=== PATIENT | male | born 1965 | race Caucasian/White ===

== ENCOUNTER → 2017-10-13 | Outpatient (CLI) | payer OTHER ==
[~2017-10-13] MED LIST: AMLO10 PO; CARB100CH PO; LEVSOD100 PO; LISI5 PO; SENN187 PO; SOLI5 PO; Vesicare10 MG PO
[2017-10-13 23:34] LABS: Stool Occult Bld Immuno 1 Negative (NEGATIVE)
== END | disposition home or self-care (01) ==
LOC: LAB SHORT 09:00 → LAB SRC 09:00
PROVIDERS: Internal Medicine
DX: Z12.11 Encounter for screening for malignant neoplasm of colon (principal)
CPT/HCPCS: G0328

== ENCOUNTER 2020-04-06 11:14 | Emergency (ER) | payer OTHER ==
[~2020-04-06] VITALS: Ht 165.1 cm; Wt 99.3 kg
[2020-04-06] MEDS ORDERED: LOSA25 PO (11:33)
[2020-04-06] MEDS ORDERED: DOCU100 PO (11:33)
== END 2020-04-06 18:58 | disposition home or self-care (01) ==
LOC: ER 11:14
DX: K59.00 Constipation, unspecified (principal); I10 Essential (primary) hypertension; G40.909 Epilepsy, unspecified, not intractable, without status epilepticus; Z79.899 Other long term (current) drug therapy
CPT/HCPCS: 74018; 99283-25

== ENCOUNTER 2020-07-24 10:58 | Emergency (ER) | payer OTHER ==
[~2020-07-24] VITALS: Ht 170.2 cm; Wt 158.8 kg
[~2020-07-24 10:58] MED LIST changes: +DOCU100 PO; +LOSA25 PO
== END 2020-07-24 14:59 | disposition home or self-care (01) ==
LOC: ER 10:58
DX: S00.81XA Abrasion of other part of head, initial encounter (principal); M25.551 Pain in right hip; W01.198A Fall on same level from slipping, tripping and stumbling with subsequent striking against other object, initial encounter; Z79.899 Other long term (current) drug therapy; I10 Essential (primary) hypertension; G40.909 Epilepsy, unspecified, not intractable, without status epilepticus
CPT/HCPCS: 70450; 73502; 99284-25

== ENCOUNTER 2020-07-26 10:22 | Emergency (ER) | payer OTHER ==
[~2020-07-26] VITALS: Ht 167.6 cm; Wt 90.7 kg
[2020-07-26] MEDS ORDERED: Vitamin D2000 UNIT PO (10:29)
[2020-07-26] MEDS ORDERED: TOLT2 PO (10:30)
== END 2020-07-26 13:45 | disposition home or self-care (01) ==
LOC: ER 10:22
DX: M16.0 Bilateral primary osteoarthritis of hip (principal); I10 Essential (primary) hypertension; G40.909 Epilepsy, unspecified, not intractable, without status epilepticus; Z79.899 Other long term (current) drug therapy; Z87.828 Personal history of other (healed) physical injury and trauma
CPT/HCPCS: 72192; 73560-LT; 99284-25

== ENCOUNTER 2020-10-22 12:51 | Emergency (ER) | payer OTHER ==
[~2020-10-22] VITALS: Ht 165.1 cm; Wt 122.5 kg
[~2020-10-22 12:51] MED LIST changes: +TOLT2 PO; +Vitamin D2000 UNIT PO
== END 2020-10-22 16:20 | disposition home or self-care (01) ==
LOC: ER 12:51
DX: S71.111A Laceration without foreign body, right thigh, initial encounter (principal); I10 Essential (primary) hypertension; G40.909 Epilepsy, unspecified, not intractable, without status epilepticus; Z79.899 Other long term (current) drug therapy; W18.30XA Fall on same level, unspecified, initial encounter
CPT/HCPCS: 99283

== ENCOUNTER 2023-04-22 17:33 | Emergency (ER) | payer OTHER ==
[~2023-04-22] VITALS: Ht 167.6 cm; Wt 127.0 kg
[2023-04-22] MEDS ORDERED: MIRALAX17 GM PO (17:44)
[2023-04-22] MEDS ORDERED: OXYB5 PO (17:44)
[2023-04-22] MEDS ORDERED: ACET500 PO (17:44)
[2023-04-22 23:18] VITALS: BP 150/68
== END 2023-04-22 23:18 | disposition home or self-care (01) ==
LOC: ER 17:33
DX: S43.015A Anterior dislocation of left humerus, initial encounter (principal); W18.30XA Fall on same level, unspecified, initial encounter; Z79.899 Other long term (current) drug therapy; I10 Essential (primary) hypertension; G40.909 Epilepsy, unspecified, not intractable, without status epilepticus
CPT/HCPCS: 23655; 71045; 73030; 73070; 99152; 99284-25; J2704

== ENCOUNTER 2023-09-04 09:30 | Day surgery (SDC) | payer OTHER ==
[~2023-09-04] VITALS: Ht 152.4 cm; Wt 145.4 kg
[~2023-09-04 09:30] MED LIST changes: +ACET500 PO; +CARMOL TOP; +Flonase 0.05% N16 GM; +Lactated Ringer's 1,000 ML IV SCH; +MIRALAX17 GM PO; +NYSTRIT TOP; +OXYB5 PO; +SENNA LAXATIVE8.6 MG PO
[2023-09-04 10:24] VITALS: BP 125/83
[2023-09-04] MEDS ORDERED: Rocuronium Bromide 10 MG/ML 5ML Injection IV ONE (12:16)
[2023-09-04] MEDS ORDERED: propofoL 20 ML IV ONE (12:16)
[2023-09-04] MEDS ORDERED: FentaNYL Citrate 50 MCG/ML 2 ML Injection ONE (12:16)
[2023-09-04] MEDS ORDERED: Phenylephrine HCl 100 MCG/ML-NS 10MLSYR (1MG/10ML) ONE (12:42)
[2023-09-04] MEDS ORDERED: Glycopyrrolate 0.2 MG/ML 5ML VIAL ONE (12:49)
[2023-09-04] MEDS ORDERED: Ondansetron HCl 2 MG / ML 2ML Vial ONE (12:57)
--- NOTE | 2023-09-04 12:58 | NUR ---
09/04/23 1258 Manjinder Huggins History, Chart, Medications and Allergies reviewed before start of procedure.MONITOR INTACT WITH CONTINUOUS PULSE OXIMETRY, CONTINUOUS END TITAL CO2, AND INTERMITTENT BLOOD PRESSURE.3-LEAD EKG REVIEWED WITH PHYSICIAN PRIOR TO START OF PROCEDURE.See Anesthesia record.
[2023-09-04] MEDS ORDERED: Albuterol 2.5 MG/3 ML VIAL INH PRN (13:05)
[2023-09-04] MEDS ORDERED: FentaNYL Citrate 50 MCG/ML 2 ML Injection IV PRN (13:05)
[2023-09-04] MEDS ORDERED: Droperidol 5 mg/2 ml Vial IV PRN (13:05)
[2023-09-04] MEDS ORDERED: HYDROmorphone HCl/Pf 1MG SYR IV PRN (13:05)
[2023-09-04] MEDS ORDERED: Sugammadex Sodium 200 MG/2ML SDV (100 MG/ML) ONE (13:21)
[2023-09-04] MEDS ORDERED: Naloxone HCl 0.4MG / ML 1ML Vial ONE (13:38)
[2023-09-04 13:47] VITALS: BP 120/91
[2023-09-04 13:50] VITALS: BP 116/94
[2023-09-04 13:55] VITALS: BP 107/80
[2023-09-04 14:20] VITALS: BP 163/81
[2023-09-04] MEDS ORDERED: Acetaminophen 500 MG Tab PO ONE (14:20)
--- NOTE | 2023-09-04 14:55 | NUR ---
Discharge instructions reviewed with patient. Patient verbalizes understanding. Copy given to patient to take home. Discharged via wheelchair to private car for ride home.
== END 2023-09-04 14:56 | disposition home or self-care (01) ==
LOC: ORSCMMR 09:30 → ORD 10:45 → ORSCMMR 10:45
PROVIDERS: Internal Medicine Gastroenterology
PROC: 0DBK8ZX Excision of Ascending Colon, Via Natural or Artificial Opening Endoscopic, Diagnostic (ICD-10-PCS; principal; 2023-09-04 10:45)
DX: Z12.11 Encounter for screening for malignant neoplasm of colon (principal); D12.2 Benign neoplasm of ascending colon; K59.09 Other constipation; G47.33 Obstructive sleep apnea (adult) (pediatric); E66.01 Morbid (severe) obesity due to excess calories; Z68.44 Body mass index [BMI] 60.0-69.9, adult; F79 Unspecified intellectual disabilities; G71.00 Muscular dystrophy, unspecified; Z79.899 Other long term (current) drug therapy
CPT/HCPCS: 88305; A9270; J2310; J2371; J2405; J2704; J3010; J7120

== ENCOUNTER → 2024-09-14 | Outpatient (CLI) | payer OTHER ==
[~2024-09-14] MED LIST changes: +BISA10S PR; +BISA5EC PO; +CARB200 PO; +CEPH500 PO; +LEVOTHYROXINE125 MC9 PO; -Lactated Ringer's 1,000 ML IV SCH; +NALOXONE H0.4 MG/1 M IM; +TRAM50 PO; +VITAMIN D5000 UNIT
[2024-09-14 17:56] LABS: Source, Urine Voided
[2024-09-14 19:14] LABS: Appearance, Urine Hazy (Clear); Bilirubin, Urine Neg (Neg); Blood, Urine 5+ (Neg); Color, Urine Yellow (P-Yellow); Glucose Qualitative, Urine Neg (Neg); Ketones, Urine Neg (Neg); Leukocyte Esterase, Urine 3+ (Neg); Nitrite, Urine Pos (Neg); Protein, Urine 3+ (Neg); Urobilinogen, Urine NORM (Normal); pH, Urine 6.5 (5.0-8.0)
[2024-09-14 19:24] LABS: Bacteria Mod /hpf; Red Blood Cells, Urine TNTC /hpf (0-2); Renal Epithelial Rare /hpf (0-Rare); Squamous Epithelial Cells Few /hpf (Few); White Blood Cells, Urine 50-100 /hpf (0-5)
[2024-09-14 19:25] LABS: Amorphous Light (0-Heavy)
== END ==
LOC: LAB 17:54 → LAB SHORT 17:54
PROVIDERS: Family Medicine
DX: N39.0 Urinary tract infection, site not specified (principal)
CPT/HCPCS: 81001; 87077; 87086; 87186

== ENCOUNTER → 2024-10-20 | Outpatient (CLI) | payer OTHER ==
[2024-10-20 11:02] LABS: Source, Urine Clean Catch
[2024-10-20 12:35] LABS: Appearance, Urine Hazy (Clear); Bilirubin, Urine Neg (Neg); Blood, Urine 4+ (Neg); Glucose Qualitative, Urine Neg (Neg); Ketones, Urine Neg (Neg); Leukocyte Esterase, Urine 3+ (Neg); Nitrite, Urine Neg (Neg); Protein, Urine 3+ (Neg); Urobilinogen, Urine NORM (Normal)
[2024-10-20 12:43] LABS: Color, Urine Pale Yellow (P-Yellow)
[2024-10-20 12:44] LABS: Bacteria Mod /hpf; Red Blood Cells, Urine 25-50 /hpf (0-2); Squamous Epithelial Cells Few /hpf (Few); White Blood Cells, Urine 50-100 /hpf (0-5)
== END ==
LOC: LAB 10:15 → LAB SHORT 10:15
PROVIDERS: Physician Assistant
DX: N39.0 Urinary tract infection, site not specified (principal)
CPT/HCPCS: 81001; 87077; 87086; 87186

== ENCOUNTER → 2025-02-09 | Outpatient (CLI) | payer OTHER | LOC: LAB SHORT 17:52 → LAB 17:52 | DX: R39.9 Unspecified symptoms and signs involving the genitourinary system (principal) | CPT/HCPCS: 87086 ==

== ENCOUNTER → 2025-02-28 | Outpatient (CLI) | payer OTHER ==
[2025-02-28 15:56] LABS: Source, Urine Clean Catch
[2025-02-28 16:36] LABS: Bilirubin, Urine Neg (Neg); Color, Urine Brown (P-Yellow); Glucose Qualitative, Urine Neg (Neg); Ketones, Urine Neg (Neg); Leukocyte Esterase, Urine 3+ (Neg); Protein, Urine 3+ (Neg); Specific Gravity, Urine 1.020 (1.003-1.022); Urobilinogen, Urine 1+ (Normal)
[2025-02-28 17:02] LABS: Red Blood Cells, Urine TNTC /hpf (0-2); White Blood Cells, Urine 25-50 /hpf (0-5)
== END | disposition home or self-care (01) ==
LOC: LAB 15:51 → LAB SHORT 15:51
PROVIDERS: Physician Assistant
DX: N39.0 Urinary tract infection, site not specified (principal)
CPT/HCPCS: 81001; 87086